=== PATIENT | male | born 1975 | race Hispanic/Latino ===

== ENCOUNTER 2017-12-19 05:30 | Day surgery (SDC) | payer OTHER, MEDICARE ==
[~2017-12-19] VITALS: Ht 162.6 cm; Wt 71.6 kg
[2017-12-19] VITALS (7 sets, daily range): BP systolic 123–175; BP diastolic 79–99
[2017-12-19] MEDS ORDERED: SODIUM CHLORIDE 0.9% 1000ML 1,000 ML IV ONE (05:54)
[2017-12-19] MEDS ORDERED: PROPOFOL 10 MG/ML 20ML VIAL IV ONE (06:26)
[2017-12-19] MEDS ORDERED: LISI-617 PO (06:26)
[2017-12-19] MEDS ORDERED: LIDOCAINE HCL-MPF 2% 5ML VIAL ONE (06:26)
== END 2017-12-19 07:23 | disposition home or self-care (01) ==
LOC: ENDO 05:30 → DAH 05:30 → ENDO 07:23
PROVIDERS: ATTEND Internal Medicine
DX: K29.50 Unspecified chronic gastritis without bleeding (principal); K31.89 Other diseases of stomach and duodenum; K22.8 Other specified diseases of esophagus; K20.9 Esophagitis, unspecified; F41.9 Anxiety disorder, unspecified; I10 Essential (primary) hypertension; K21.9 Gastro-esophageal reflux disease without esophagitis; Z98.890 Other specified postprocedural states; Z87.442 Personal history of urinary calculi; Z79.899 Other long term (current) drug therapy
CPT/HCPCS: 43239; 88305; A4606; J2704; J3490; J7030